=== PATIENT | female | born 1950 | race Caucasian/White ===

== ENCOUNTER 2017-06-15 04:02 | Day surgery (SDC) | payer MEDICARE, OTHER ==
[~2017-06-15] VITALS: Ht 157.5 cm; Wt 73.0 kg
[~2017-06-15 04:02] MED LIST: CARI-327 PO; CELE-1 PO; CHOL10005 PO; DICL100G39 TP; LEVO-3 PO; MULT-1335 PO; OMEP-218 PO; PARO-46 PO; TERA5CAP59 PO; TRAM-420 PO
[2017-06-15 09:13] VITALS: BP 157/82
[2017-06-15] MEDS ORDERED: MIDAZOLAM 2 MG/2 ML VIAL IVP PRN (10:50)
[2017-06-15] MEDS ORDERED: NORMOSOL R SOLN(*) 1000 ML BAG 1,000 ML IV PRN (10:50)
[2017-06-15] MEDS ORDERED: ceFAZolin(*) 1 GM VIAL 1 GM in NS(*) 0.9% 100 ML ADDVANT BAG 100 ML IVPB ONE (10:50)
[2017-06-15] MEDS ORDERED: CELECOXIB 200 MG CAP PO ONE (10:50)
[2017-06-15] MEDS ORDERED: ROPIVACAINE 0.2% 20 ML VIAL ONE (11:17)
[2017-06-15] MEDS ORDERED: NEOMYCIN/POLYMYX/BACITR 30 GM TP ONE (11:17)
[2017-06-15] MEDS ORDERED: BETAMETHASONE/ACETATE 6 MG/1ML ONE (11:19)
[2017-06-15] MEDS ORDERED: fentaNYL CITR 100 MCG/2 ML AMP ONE ×2 (11:20→14:21)
[2017-06-15] MEDS ORDERED: BUPIVACAIN 0.25% INJ 50ML VIAL ONE (11:20)
[2017-06-15] MEDS ORDERED: PROPOFOL EMUL(*) 10MG/ML 20 ML 20 ML ONE (11:20)
[2017-06-15] MEDS ORDERED: METOCLOPRAMIDE 10 MG/2 ML SDV ONE ×2 (11:20→12:27)
[2017-06-15] MEDS ORDERED: ONDANSETRON 4 MG/2 ML VIAL ONE (11:20)
[2017-06-15] MEDS ORDERED: DEXAMETHASONE SOD 4 MG/ML VIAL ONE (11:20)
[2017-06-15] MEDS ORDERED: LIDOCAINE MPF 1% 5 ML VIAL ONE (11:20)
[2017-06-15] MEDS ORDERED: CEPH500T7 PO (15:16)
[2017-06-15] MEDS ORDERED: OXYC-865 PO (15:16)
[2017-06-15 15:45] VITALS: BP 136/75
[2017-06-15 16:00] VITALS: BP 151/79
[2017-06-15 16:10] VITALS: BP 143/84
[2017-06-15 16:13] VITALS: BP 146/81
[2017-06-15] MEDS ORDERED: oxyCODONE/ACETAMIN 5/325MG TH 2 TAB/BOTTLE ONE (16:45)
--- NOTE | 2017-06-15 19:19 | OPERATIVE REPORT 1 ---
EVENT DATE: June 15, 2017 SURGEON: Joshua Enrique MD ANESTHESIOLOGIST: Hany Benitez MD ANESTHESIA: General. STATUE CARVER: Florencio Ba PA-C PREOPERATIVE DIAGNOSES 1. 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 2. Right carpal tunnel syndrome. POSTOPERATIVE DIAGNOSES 1. 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 2. Right carpal tunnel syndrome. PROCEDURES PERFORMED 1. Take-down six-month nonunion right clavicle fracture with open reduction and internal fixation using synthetic bone graft, wire, and plates, including interfragmentary fixation. 2. Right open carpal tunnel release. ESTIMATED BLOOD LOSS Minimal. INTRAVENOUS FLUIDS 1500 mL TOURNIQUET TIME Six minutes for the carpal tunnel. SPECIMENS No specimens. COMPLICATIONS No complications. IMPLANTS USED Acumed titanium plate. SUMMARY OF PROCEDURE The patient was brought into the operating room and placed on the OR table in the supine position. She was given a general anesthetic and then placed in the semi-beach chair position. The right clavicle and chest wall were prepped and draped in the usual sterile fashion, free draping the arm. An incision was then made over the superior margin of the clavicle and deepened through skin and subcutaneous tissue. The fascia was then incised, exposing the medial fragment. There was abundant callus formation, some of which was soft, and some was hard. 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 There was a tremendous amount of fibrous tissue in the vicinity of the nonunion, but unfortunately, it did not form sufficient callus to bridge the gap. In addition, the distal fragment continued to sit quite a ways inferior and distal to the proximal fragment. We first mobilized the butterfly fragment and put it on the back table, cleaning it of all soft tissue debris and using a curette to rough up its surfaces. We then worked on the medial fragment by placing a fibular clamp on the shaft, lifting it up, and then using a curette, a bur, and a drill to multiply fenestrate the deep surface and also to recanalize the medullary canal. I did the same thing with the lateral fragment and then used my thigh and abdomen to push up on her elbow, elevating the extremity back up to its normal level so that the clavicle fragments lined up. We held her in that position while preparing to repair the bone. It was difficult to determine exactly where the two fragments would fit together because so much time had passed, but it did appear that we had some interdigitation having cleaned both surfaces. We did take care to avoid changing the anatomy of the structures with the bur while working with it. Two 0.045 inch K-wires were temporarily used to hold the medial and lateral fragments together, taking an oblique shot at it to avoid interference with screws, the plate, or the subsequent wires. We then placed one interfragmentary screw between the primary medial and lateral fragment and then packed InterGro bone graft with calcium granules in the previously prepared junction site. The butterfly fragment was then placed into the defect that was still present, and we used 22-gauge wire to position it, using two wires first and then waiting for the third wire until after the plate. Additional InterGro was placed, and then we tried a couple different plates and ultimately selected one which could be contoured to fit. We started with two fibular clamps to hold it in place and then went lateral, followed by medial. Multiple lateral small locking screws were used, and then medially, we used both locking and nonlocking screws. Having done this, we passed one additional 22-gauge wire around the plate and the residual elements of the fragment and held this as well. The final amount of InterGro graft with calcium granules was placed, and then we irrigated the wound as we had before joining the bones together. The fascia was closed with 0 Vicryl, followed by 3-0 Vicryl for the subcutaneous tissue, and then 4-0 Monocryl for skin. We did not do anything further on the incision for now and instead brought the Stanton v/stol landing signal officer. We regowned and then did the carpal tunnel. This was done by making a longitudinal incision in the mid palm and deepened through skin and subcutaneous tissue after having exsanguinated the limb and inflated the sterile tourniquet that had been placed on the arm with good padding. The cates fascia was identified. Self-retaining retractors were placed. The fascia was excised exposing the underlying transverse carpal ligament, which in turn was divided distally. She had much less distal tissue than average, and so the release was done fairly early with most of her carpal tunnel being more proximal toward the wrist flexion crease. Once this was complete distally, I spread above and below the distal aspect of the antebrachial fascia and the proximal portion of the transverse carpal ligament and released this under direct vision. I passed my small finger up to confirm adequacy of release, and there was still a band of tissue, so we released one more time with the scissors and then confirmed a full release. The radial leaflet of the transverse carpal ligament was bluntly elevated away from the nerve using a hemostat, continuing radially until identifying the flexor pollicis longus, and then moving distally to confirm that median motor branch was intact and that the sensory branches had not been damaged. The wound was irrigated. Nylon was used to close the skin (4-0 nylon), and then we placed a nonadherent dressing. After this, we went back up to the clavicle, washed the wound, placed Steri-Strips with benzoin, and injected both sites. She was given a dry, sterile dressing and sling. She was awakened and transferred to the post-anesthesia care unit in stable condition. KAREEM
== END 2017-06-15 15:45 | disposition home or self-care (01) ==
LOC: OR 04:02
PROVIDERS: ATTEND Orthopaedic Surgery Hand Surgery
DX: S42.031A Displaced fracture of lateral end of right clavicle, initial encounter for closed fracture (principal); G56.01 Carpal tunnel syndrome, right upper limb
CPT/HCPCS: 23515; 64721; A4565; A9270; C1713; J0690; J0702; J1100; J2001; J2405; J2704; J2765; J2795; J3010; J3490; J7050